=== PATIENT | female | born 1970 ===

== ENCOUNTER 2016-07-05 09:48 | Emergency (ER) | payer BC, OTHER ==
[2016-07-05 11:21] VITALS: BP 172/98
--- NOTE | 2016-07-05 13:49 | UC ---
Throat Pain/Nasal Santhosh HPI - HPI Summary HPI Summary: fever, body aches viral symptoms for 7-10 days---fever last night and this morning today has a large tender warm swollen right anterior cervical lymph node - History of Current Complaint Chief Complaint: UCGeneralIllness Stated Complaint: THROAT COMPLAINT Time Seen by Provider: 07/05/16 10:42 Hx Obtained From: Patient Hx Last Menstrual Period: 06/19/16 ?: No Onset/Duration: Sudden Onset, Worse Since - past 12 hours Severity: Moderate Pain Intensity: 0 Pain Scale Used: 0-10 Numeric Cough: None Associated Signs & Symptoms: Positive: Fever - Allergies/Home Medications Allergies/Adverse Reactions: Allergies Allergy/AdvReac Type Severity Reaction Status Date / Time No Known Allergies Allergy Verified 07/05/16 11:21 Home Medications: Home Medications NK [No Home Medications Reported] 07/05/16 [History Confirmed 07/05/16] PMH/Surg Hx/FS Hx/Imm Hx Previously Healthy: Yes - Surgical History Surgical History: Yes Surgery Procedure, Year, and Place: c sections - Family History Known Family History: Positive: None Family History: no cardio vascular issues in family lineage - Social History Occupation: Employed Full-time Lives: With Family Alcohol Use: Rare Substance Use Type: None Smoking Status (MU): Former Smoker Review of Systems Constitutional: Fever, Fatigue Skin: Negative Eyes: Negative ENT: Sore Throat, Nasal Discharge Respiratory: Negative Cardiovascular: Negative Gastrointestinal: Negative Genitourinary: Negative Motor: Negative Neurovascular: Negative Musculoskeletal: Negative Neurological: Negative Psychological: Negative All Other Systems Reviewed And Are Negative: Yes Physical Exam Triage Information Reviewed: Yes Appearance: Well-Nourished, Ill-Appearing - mild, Pain Distress - mild Vital Signs: Initial Vital Signs Temp 100.8 F 07/05/16 11:16 Pulse 92 07/05/16 11:16 Resp 20 07/05/16 11:16 BP 172/98 07/05/16 11:16 Pulse Ox 98 07/05/16 11:16 Vital Signs Reviewed: Yes Eye Exam: Normal Eyes: Positive: Conjunctiva Clear ENT Exam: Normal ENT: Positive: Hearing grossly normal, Pharyngeal erythema, TMs normal. Negative: Nasal congestion, Nasal drainage, Tonsillar swelling, Tonsillar exudate, Trismus, Muffled/hoarse voice Dental Exam: Normal Neck exam: Other Neck: Positive: Supple, Tenderness @ - right anterior cervical lympnode, Enlarged Nodes @ - right anterior cervical Respiratory Exam: Normal Respiratory: Positive: Chest non-tender, Lungs clear, Normal breath sounds, No respiratory distress, No accessory muscle use, Other: - airway open and patent no stridor or encrouchment noted Cardiovascular Exam: Normal Cardiovascular: Positive: RRR, No Murmur, Pulses Normal, Brisk Capillary Refill Musculoskeletal Exam: Normal Musculoskeletal: Positive: Strength Intact, ROM Intact, No Edema Neurological Exam: Normal Neurological: Positive: Alert, Muscle Tone Normal Psychological Exam: Normal Psychological: Positive: Normal Response To Family, Age Appropriate Behavior Skin Exam: Normal Diagnostics - Laboratory Diagnostic Studies Completed/Ordered: RST(-) Throat Pain/Nasal Course/Dx - Course Assessment/Plan: [place] [facility] [place] [facility] - Differential Dx/Diagnosis Differential Diagnosis/HQI/PQRI: Haseeb's Angina, Peritonsillar Abscess, Other - LYmpangitis Provider Diagnoses: right cervial node lymph swelling - Physician Notification/Consults Discussed Patient Care With: Keisha CEBALLOS Time Discussed With Above Provider: 12:00 Instructed by Provider To: Transfer Discharge - Discharge Plan Condition: Good Disposition: AGAINST MEDICAL ADVICE Referrals: Piter MAR,Nevaeh Rankin [Primary Care Provider] -
== END 2016-07-05 12:12 | disposition left against medical advice (07) ==
LOC: UCEAST 09:48
DX: R59.0 Localized enlarged lymph nodes (principal); Z87.891 Personal history of nicotine dependence
CPT/HCPCS: 87651; 99202; G0463